=== PATIENT | female | born 1990 | race Caucasian/White ===

== ENCOUNTER 2024-09-12 19:43 | Emergency (ER) | payer OTHER, BC ==
[~2024-09-12] VITALS: Ht 154.9 cm; Wt 78.5 kg
[2024-09-12] MEDS ORDERED: BUSP5TA PO (19:53)
[2024-09-12] MEDS ORDERED: SEMA1PEN2 SQ (19:53)
[2024-09-12] MEDS ORDERED: PROP60TA14 PO (19:53)
[2024-09-12] MEDS ORDERED: ATOR1TAB19 PO (19:53)
[2024-09-12] MEDS ORDERED: AIMO70IN SC (19:53)
[2024-09-12 21:25] VITALS: BP 138/88; TEMP 97.3; O2SAT 98
== END 2024-09-12 21:27 | disposition home or self-care (01) ==
LOC: M ED 19:43
DX: M25.561 Pain in right knee (principal); X50.0XXA Overexertion from strenuous movement or load, initial encounter; E28.2 Polycystic ovarian syndrome; K21.9 Gastro-esophageal reflux disease without esophagitis; E11.9 Type 2 diabetes mellitus without complications; F41.9 Anxiety disorder, unspecified; Y92.009 Unspecified place in unspecified non-institutional (private) residence as the place of occurrence of the external cause; Y93.89 Activity, other specified; Y99.9 Unspecified external cause status; Z79.02 Long term (current) use of antithrombotics/antiplatelets; Z79.899 Other long term (current) drug therapy; Z88.1 Allergy status to other antibiotic agents; Z88.2 Allergy status to sulfonamides; Z88.8 Allergy status to other drugs, medicaments and biological substances